=== PATIENT | female | born 1985 | race Two or more races ===

== ENCOUNTER 2017-07-19 23:11 | Emergency (ER) | payer SELFPAY | END 2017-07-20 00:14 | disposition home or self-care (01) | LOC: D.ER 23:11 | DX: S01.01XA Laceration without foreign body of scalp, initial encounter (principal); Y04.2XXA Assault by strike against or bumped into by another person, initial encounter; Y93.89 Activity, other specified; Y92.019 Unspecified place in single-family (private) house as the place of occurrence of the external cause ==